=== PATIENT | male | born 1955 | race Caucasian/White ===

== ENCOUNTER 2016-11-09 12:05 | Inpatient (IN) ==
[~2016-11-09 12:05] MED LIST: *HR* Amiodarone Premix 150 MG/100 ML BAG IVPB ONE
[2016-11-09] MEDS ORDERED: *HR* Heparin 10,000 UNIT/10 ML VIAL ONE (12:09)
[2016-11-09] MEDS ORDERED: Verapamil 5 MG/2 ML VIAL ONE (12:09)
[2016-11-09] MEDS ORDERED: 0.9 % Sodium Chloride 1,000 ML ONE (12:10)
[2016-11-09] MEDS ORDERED: Heparin 1,000 UNITS/500 mL NS 500 ML ONE (12:10)
[2016-11-09] MEDS ORDERED: Nitroglycerin 1,000 MCG/10 ML VIAL IV ONE (12:10)
[2016-11-09] MEDS ORDERED: *HR* FentaNYL (PF) 100 MCG/2 ML VIAL ONE (12:43)
[2016-11-09] MEDS ORDERED: *HR* Midazolam HCl 5 MG/5 ML VIAL IVP ONE (12:44)
[2016-11-09] MEDS ORDERED: Tirofiban 5 MG/100ML 0 MG/0 ML BAG IV ONE (13:04)
--- NOTE | 2016-11-09 13:11 | Pre-Sedation Evaluation ---
Pre-sedation evaluation - Pre-sedation checklist Date of procedure: 11/09/16 Procedure: [facility] Recent Vitals: as documented in emr H&P (including ROS) documented in medical record: Yes Previous reaction to sedatives/anesthetics: Unknown Dietary Status: unknown Airway Assessment: Patient can open mouth completely, TMJ function normal ASA Classification *see protocol: CLASS II-Mild systemic disease, E-EMERGENCY- Add to any of the above to indicate emergent Plan of Care: Pt appropriate candidate for procedure/moderate/conscious sedation , Risks/benefits of procedure/sedation discussed w/ patient/family, If not NPO; Risk of intake outweiged by necessity to perform procedure
[2016-11-09] MEDS ORDERED: *HR* Phenylephrine 10 MG/ML VIAL ONE (13:30)
[2016-11-09] MEDS ORDERED: Amiodarone Premix 360 MG/200 ML BAG IVC ONE ×2 (13:38→19:27)
[2016-11-09] MEDS ORDERED: *HR* Adenosine 6 MG/2 ML VIAL IVP ONE (13:47)
[2016-11-09] MEDS ORDERED: *HR* Atropine Sulfate 1 MG/10 ML SYRINGE ONE (13:54)
[2016-11-09] MEDS ORDERED: Ondansetron 4 MG/2 ML VIAL IVP PRN (14:21)
[2016-11-09] MEDS ORDERED: *HR* Metoprolol 5 MG/5 ML VIAL IVP PRN (14:21)
--- NOTE | 2016-11-09 14:29 | Cardiology History & Physical ---
Date of Encounter: 11/09/16 Time of Encounter: 15:00 Assessment and Plan (1) Acute MN, inferior wall Current Visit: No Status: Acute Aspirin, brilinta, heparin given. Emergent LHC for inferior STEMI to potentially save his life. A/R/B discussed with patient. EF assessment will be completed. The assessment and plan as outlined above was discussed with the patient and/or family members who expressed understanding and agreement. All questions were answered. (2) Smoker Current Visit: Yes Status: Acute Smoking cessation counseled. The assessment and plan as outlined above was discussed with the patient and/or family members who expressed understanding and agreement. All questions were answered. (3) Chest pain Current Visit: Yes Status: Acute see above. The assessment and plan as outlined above was discussed with the patient and/or family members who expressed understanding and agreement. All questions were answered. Qualifiers: Ischemic chest pain type: unspecified angina pectoris type Qualified Code(s ): I20.9 - Angina pectoris, unspecified History of Present Illness Chief complaint: chest pressure HPI: Mr. Laboy is a 61 year old male smoker with no previous cardiac history presents with severe chest discomfort radiating down left arm and inferior STEMI. It is associated with dyspnea and has minimal improvement with aspirin, brilinta, and heparin. The symptoms have been present but more mild and intermittent for a few days. Past Med Surg Social Fam HX - Past Medical History Medical history: no medical history Psychiatric history: no psych history - Past Surgical History Surgical History: other - Social History Smoking Status: Current every day smoker Smokeless Tobacco Status: No Alcohol use: none Drug use: none Medications and Allergies Gabapentin [Neurontin] 800 mg PO TID 04/06/15 [History] Acetaminophen w/Cod 300-30 mg [Tylenol w/Codeine #3] 1 tab PO BID PRN 11/09/16 [ History] Allergies No Known Allergies Allergy (Verified 07/09/16 11:15) All Systems Review: A 10-system review of systems was performed and is negative for pertinent findings except as documented above in the HPI. - Constitutional Constitutional: no chills, no fever(s) - EENT Eyes: no blurred vision, no loss of vision Nose, mouth and throat: no bleeding gums, no epistaxis - Cardiovascular Cardiovascular: chest pain at rest, chest pain with exertion, dyspnea on exertion, radiating jaw, neck or arm pain - Respiratory Respiratory: no hemoptysis, no wheezing - Gastrointestinal Gastrointestinal: no coffee ground emesis, no hematochezia - Genitourinary Genitourinary: no dysuria, no hematuria - Musculoskeletal Musculoskeletal: no abnormal gait, no muscle weakness - Integumentary Integumentary: no rash, no unusual bruising - Neurological Neurological: no abnormal speech, no loss of vision - Psychiatric Psychiatric: no anxiety, no depression - Hematological/Lymphatic Hematologic/Lymphatic: no easy bleeding, no easy bruising Physical Examination General: Conversant, Other (significant distress) HEENT: Atraumatic, Normocephaly Neck: No JVD Cardiac: Reg Rate and Rhythm Lungs: Normal Breath Sounds Neuro: Alert and responsive Abdomen: Soft Skin: No rashes noted on visualized skin Musculoskeletal: No Chest Wall Tenderness Extremities: No Edema Results - EKG Interpretation EKG results cardiology: personally reviewed, sinus rhythm (inferior current of injury)
--- NOTE | 2016-11-09 14:31 | Event Note ---
Date of Encounter: 11/09/16 Time of Encounter: 14:30 - Cardiology Event Note Prox-mid RCA occlusion s/p PCI BENITO x3. Complicated by slow flow and spasm which resulted in hypotension, VT, VF requiring defibrillation x 2, dopamine and neosynephrine. EF 55%. Patient stable at this time with ST back to baseline off of vasopressors. Continue amiodarone drip overnight
--- NOTE | 2016-11-09 14:48 | Invasive Diagnostic Lab Proc ---
Name: Lonnie Laboy Date of Study: 11/09/2016 Date: 1955 Ht: 68.0in Medical Record#: [id number] Age: 61 Wt: 150.36lb Gender: Male BSA: 1.81 Order #: [id number] BMI: 22.87 Physicians Procedure Physician: Naresh Yeboah MD, FACC Referring MD: Referring MD: Staff Name Position Time In Sarah Solis RT (R) Scrub 01:07 PM Iris Cabral RN Nailing Machine Operator Automatic 01:08 PM Marcia Guthrie RN Nailing Machine Operator Automatic 01:08 PM Daysi Salazar RN Monitor 01:08 PM Indications Indication STEMI Procedures Performed Procedure L HRT ARTERY/VENTRICLE ANGIO PRQ CARD REVASC [place] 1 VSL CARDIOVERSION, EXTERNAL Pre-Procedure Checklist Informed consent is complete signed and on chart. H\\T\\P is on chart. ID band is on and ID verified with patient. Patient NPO for procedure The procedure was described for the patient and questions were answered. ECG is on chart. Plan of Care Patient will tolerate the procedure without complications. Adequate level of comfort will be maintained. Hemodynamics will remain stable Patient will recover from procedure without complications. Respiratory function will be maintained. Cardiac rhythm will remain stable. Patient temperature will be maintained. Patient and/or family have verbalized understanding of the procedure. Patient Education Chief Complaint/Reason for Test: Cardiac Cath Developmental Category: Adult (18-64 years) Developmentally Appropriate for Age: Yes Learning Barriers: None Education Needs: Procedure Education Method: Verbal Information Taught: Cardiac Cath Educational Evaluation: Able to repeat information Intravenous Access Time IV Size Location DC'd Fluid/Drip Rate Units RN 01:10 PM 18g 1 1/4" Patent On Arrival Lt Antecubital 0.9NaCl 01:11 PM 20g 1 1/4" Patent On Arrival Lt Hand Allergies No Known Allergies Vital Signs Time BP (mmHg) HR (bpm) O2 Sat. RR (bpm) LOC / % 5 = Fully awake and oriented or at pre-proc level 01:11 PM / % 5 = Fully awake and oriented or at pre-proc level 01:12 PM / % 5 = Fully awake and oriented or at pre-proc level 01:27 PM / % 5 = Fully awake and oriented or at pre-proc level 01:12 PM 169 / 98 75 95 % 17 01:17 PM 149 / 84 84 98 % 14 01:22 PM 88 / 45 48 98 % 19 01:25 PM 88 / 48 93 99 % 16 01:29 PM 150 / 126 69 96 % 16 01:30 PM 93 / 47 107 93 % 15 01:32 PM 89 / 37 100 94 % 13 01:35 PM 99 / 50 103 91 % 18 01:40 PM 90 / 42 129 96 % 15 5 = Fully awake and oriented or at pre-proc level 01:45 PM 155 / 79 129 96 % 16 01:50 PM 150 / 84 114 99 % 13 01:55 PM 131 / 66 97 99 % 10 02:00 PM 95 / 57 85 100 % 10 5 = Fully awake and oriented or at pre-proc level 02:05 PM 125 / 60 78 100 % 16 02:10 PM 126 / 74 76 99 % 18 02:15 PM 106 / 62 77 98 % 16 5 = Fully awake and oriented or at pre-proc level Procedural Medications Time Medication Dose Units Method Given By 01:12 PM Versed 2 mg Intravenous Marcia Guthrie RN 01:12 PM Fentanyl 50 mcg Intravenous Marcia Guthrie RN 01:14 PM Lidocaine 2% 0.5 ml Subcutaneous Naresh Yeboah MD, FACC 01:15 PM Heparin 4000 units Nitroglycerin 200 mcg Verapamil 2.5 mg Intraarterial Naresh Yeboah MD, FACC 01:23 PM Atropine 1 mg Intravenous Iris Cabral RN 01:24 PM Dopamine 10 mcg/kg/min Intravenous Marcia Guthrie RN 01:27 PM Heparin 3000 units Intravenous Iris Cabral RN 01:27 PM Dopamine 15 mcg/kg/min Intravenous Iris Cabral RN 01:28 PM Reopro Bolus: 8.9 ml Intravenous Iris Cabral RN 01:29 PM Dopamine 20 mcg/kg/min Intravenous Iris Cabral RN 01:32 PM Amniodarone 100 mg Intravenous Iris Cabral RN 01:34 PM Versed 1 mg Intravenous Caotes 01:34 PM Fentanyl 25 mcg Intravenous Iris Cabral RN 01:39 PM Oxygen 7 L/min oxymask Iris Cabral RN 01:42 PM Nitroglycerin 100 mcg Intracoronary Naresh Yeboah MD 01:42 PM Amiodarone 33 ml/hr Intravenous Marcia Guthrie RN 01:44 PM Neosynephrine 100 mcg Intravenous Iris Cabral RN 01:46 PM Dopamine 10 mcg/kg/min Intravenous Iris Cabral RN 01:47 PM Dopamine 0 mcg/kg/min Intravenous Iris Cabral RN 01:50 PM Adenosine 65 mcg Intracoronary Naresh Yeboah MD 01:51 PM 0.9NaCl 500 mcg Intravenous Marcia Guthrie RN 01:51 PM Adenosine 200 mcg Intracoronary Naresh Yeboah MD 01:52 PM Nitroglycerin 100 mcg Intracoronary Naresh Yeboah MD 01:52 PM Heparin 1000 units Intravenous [place] 01:58 PM Adenosine 200 mcg Intracoronary Naresh Yeboah MD 01:59 PM Nitroglycerin 100 mcg Intracoronary Naresh Yeboah MD 02:01 PM Oxygen 5 L/min oxymask Iris Cabral RN ASA Classification: CLASS III- Severe systemic disease (i.e. prior AMI, diabetes with vascular complications, morbid obesity) [place] Score Preprocedure Postprocedure Activity 2- Moves 4 extremities sustained head lift Activity 2- Moves 4 extremities sustained head lift Circulation 2- SBP +/= 20 points of pre-anesthetic level Circulation 2- SBP +/= 20 points of pre-anesthetic level Consciousness 2- Awake and alert oriented x 3 Consciousness 2- Awake and alert oriented x 3 O2 Saturation 2- Able to maintain O2 satruation of 92% on room air O2 Saturation 2- Able to maintain O2 satruation of 92% on room air Respiratory 2- Able to deep breathe and cough well Respiratory 2- Able to deep breathe and cough well Total Score 10 Total Score 10 Contrast Agent: Isovue Diagnostic Contrast: 101 ml Total Contrast: 101 ml Fluoro Dose: 690 mGy Activated Clotting Time Time Seconds to Clot 01:51 PM 287 Procedure Log Time Note Enter By 01:07 PM CathStat 01:07 PM [ Start or Stop Vital ] 01:07 PM Pt arrived to tutorial laboratory supervisor 2 at 13:07 ejohnson 01:08 PM Sarah Solis RT (R) Position: Scrub Time in: 13:07 ejohnson 01:08 PM Iris Cabral RN Position: Nailing Machine Operator Automatic Time in: 13:08 ejohnson 01:08 PM Marcia Guthrie RN Position: Nailing Machine Operator Automatic Time in: 13:08 ejohnson 01:08 PM Daysi Salazar RN Position: Monitor Time in: 13:08 ejohnson 01:08 PM Patient charges- Angio tray pack, Navilyst 3mm J, Pulse Oximetry and ACIST tubing and transducer ejohnson : PM Hair removed from procedure site in procedure lab using clippers. Right wrist prepped with Chloraprep by Sarah Solis (Emma), safety strap applied then patient was draped. Skin intact. ejohnson : PM Physician arrived 13:08 ejohnson :08 PM ASA Class CLASS III- Severe systemic disease (i.e. prior AMI, diabetes with vascular complications, morbid obesity) ejohnson : PM Meet and greet completed ejohnson : PM Sign in performed according to hospital policy. ejohnson :08 PM Procedure start 13:08 ejohnson :10 PM Vitals capture started with the following parameters, Patient=Adult, Interval=5 min, Initial Zebyxwur=420 mmHg, Deflation Rate=5 mmHg, Cuff placed on Left Arm 01:11 PM Vitals capture started with the following parameters, Patient=Adult, Interval=5 min, Initial Kjklnipa=404 mmHg, Deflation Rate=5 mmHg, Cuff placed on Left Arm 01:11 PM Time: 13:11 Patient comfortable and pain free: No 8/10 chest pain..STEMI ejohns:12 PM Time: 13:11LOC: 5 = Fully awake and oriented or at pre-proc level ejohnson :12 PM HR=75 bpm, JDXX=688/98 mmhg, SpO2=95.0 %, Resp=17 B/min, Comment=SR 01:12 PM Time: 13:12 Versed 2 mg Intravenous Given by Marcia Guthrie RN ejcanson :12 PM Time: 13:12 Fentanyl 50 mcg Intravenous Given by Marcia Guthrie RN ejcanson :13 PM Recorded ECG: HR=76 Condition=Condition 1 01:14 PM Time out performed according to hospital policy ejoh:14 PM Time: 13:14 0.5 ml Lidocaine 2% to right radial Subcutaneous Given by Naresh Yeboah MD, [facility] ejohnson :14 PM Access obtained by percutaneous puncture. 6Fr 10cm Terumo Glidesheath sheath placed in right Radial artery. [id number] ejohnson 01:15 PM Time: 13:15 Patient given 4,000 units Heparin, 200 mcg Nitroglycerin, and 2.5 mg Verapamil Intraarterial by Naresh Yeboah MD, [facility] ejohnson 01:16 PM 6Fr Im Runway guide catheter was used to cannulate the PCI vessel successfully. reused? No ejohnson 01:16 PM Inflation device was opened. ejohnson 01:17 PM HR=84 bpm, LAGD=074/84 mmhg, SpO2=98.0 %, Resp=4 B/min, Comment=SR 01:17 PM Recorded Pressure: Ao, HR=87, Condition=Condition 1 (Aorta) Ao 130/96/112 01:17 PM RCA angiography performed in multiple views. ejohnson 01:18 PM Lesion found in Proximal RCA. Pre Stenosis: 100 Pre JOSE Flow: 3: Complete and Brisk Flow/Perfusion ejohnson 01:18 PM Right Coronary, Right Posterior Descending Arteries with Right Posterolateral and Acute Marginal branches with 100 % stenosis. ejohnson 01:18 PM .014 PT Graphix 180cm guide wire across target lesion- successful. reused? No ejohnson 01:19 PM 2.5 mm x 15 mm Emerge Monorail balloon across target lesion- successful. reused? No ejohnson 01:20 PM Balloon inflated @ 14 meng for 10 seconds ejohnson 01:20 PM Recorded Pressure: Ao, HR=43, Condition=Condition 1 (Aorta) Ao 130/-25/35 01:20 PM Time: 13:23 Atropine 1 mg Intravenous Given by Iris Cabral RN ejohnson 01:21 PM Balloon inflated @ 14 meng for 6 seconds ejohnson 01:21 PM Balloon catheter removed intact. ejohnson 01:21 PM NIBP STAT measurement started. 01:22 PM HR=48 bpm, NIBP=88/45 mmhg, SpO2=98 %, Resp=9 B/min 01:23 PM Guide catheter removed intact. ejohnson 01:23 PM NIBP STAT measurement started. 01:23 PM 3.0mm x 20mm Synergy drug-eluting stent across target lesion- successful Lot #[id number] ejohnson 01:24 PM Stent deployed @ 14 meng for 10 seconds ejohnson 01:24 PM Recorded Pressure: Ao, HR=63, Condition=Condition 1 (Aorta) Ao 24/-3 01:24 PM Time: 13:24 Dopamine 10 mcg/kg/min Intravenous Given by Marcia Guthrie RN Cordero pump ejohnson :25 PM Pressure channel 1 zero failed. 01:25 PM Pressure channel 1 zeroed. 01:25 PM HR=93 bpm, NIBP=88/48 mmhg, SpO2=99.0 %, Resp=16 B/min, Comment=SR 01:25 PM Stent delivery system removed intact. ejohnson : PM NIBP STAT measurement started. : PM Time: 13:12LOC: 5 = Fully awake and oriented or at pre-proc level ejohnson : PM Time: 13:11 Patient comfortable and pain free: Yes ejohnson : PM Time: 13:27 Heparin 3000 units Intravenous Given by Iris Cabral RN ejohnson : PM Time: 13:27 Dopamine 15 mcg/kg/min Intravenous Given by Iris Cabral RN Cordero pump ejohnson : PM Vitals capture stopped. 01:28 PM NIBP STAT measurement started. 01: PM Guide catheter removed intact. ejohnson : PM Guide catheter removed intact. ejohnson : PM Time: 13:28 Reopro Bolus: 8.9 ml Intravenous Given by Iris Cabral RN Cordero pump ejohnson : PM 6Fr JR 4 Runway guide catheter was used to cannulate the PCI vessel successfully. reused? No ejohnson : PM Time: 13:29 Dopamine 20 mcg/kg/min Intravenous Given by Iris Cabral RN Cordero pump ejohnson : PM HR=69 bpm, GZQB=608/126 mmhg, SpO2=96 %, Resp=6 B/min 01:29 PM Vitals capture started with the following parameters, Patient=Adult, Interval=5 min, Initial Szrkztro=375 mmHg, Deflation Rate=5 mmHg, Cuff placed on Left Arm 01:30 PM Guide catheter removed intact. ejohnson :30 PM TY=076 bpm, NIBP=93/47 mmhg, SpO2=93 %, Resp=5 B/min 01:32 PM NIBP STAT measurement started. 01:32 PM 6Fr JR 4 SH Runway guide catheter was used to cannulate the PCI vessel successfully. reused? No ejohnson 01:32 PM VM=842 bpm, NIBP=89/37 mmhg, SpO2=94 %, Resp=3 B/min 01:33 PM Time: 13:32 Amniodarone 100 mg Intravenous Given by Iris Cabral RN ejohnson 01:33 PM 200joules defib ejohnson 01:33 PM Recorded Pressure: Ao, OG=192, Condition=Condition 1 (Aorta) Ao 85/62/73 01:34 PM .014 PT Graphix 180cm guide wire across target lesion- successful. reused? Yes ejohnson 01:34 PM Time: 13:34 Versed 1 mg Intravenous Given by Veronica ejohnson 01:34 PM Time: 13:34 Fentanyl 25 mcg Intravenous Given by Iris Cabral RN ejohnson 01:35 PM VH=326 bpm, NIBP=99/50 mmhg, SpO2=91 %, Resp=8 B/min 01:36 PM 200 joules defib ejohnson 01:36 PM 2.0 mm x 20 mm Emerge Monorail balloon across target lesion- successful. reused? No ejohnson 01:37 PM Balloon inflated @ 14 meng for 10 seconds ejohnson 01:37 PM Balloon inflated @ 12 meng for 10 seconds ejohnson 01:39 PM Time: 13:39 Oxygen on at 7 L/min per oxymask by Iris Cabral RN ejohnson 01:39 PM Balloon catheter removed intact. ejohnson 01:39 PM 3.0mm x 28mm Synergy drug-eluting stent across target lesion- successful Lot #[id number] ejohnson 01:40 PM Stent deployed @ 12 meng for 9 seconds ejohnson 01:40 PM TR=263 bpm, NIBP=90/42 mmhg, SpO2=96.0 %, Resp=6 B/min, Comment=SR 01:40 PM Stent balloon reinflated @ 14 meng for 12 seconds ejohnson 01:41 PM Stent delivery system removed intact. ejohnson 01:42 PM Time: 13:27 Patient comfortable and pain free: Yes ejohnson :42 PM Time: 13:27LOC: 5 = Fully awake and oriented or at pre-proc level ejohnson :42 PM Time: 13:42 Nitroglycerin 100 mcg Intracoronary Given by Naresh Yeboah MDohnscristnia 01:43 PM Time: 13:42 Amiodarone 33 ml/hr Intravenous Given by Marcia Guthrie RN Cordero pump ejohnscristina 01:44 PM 3.0mm x 24mm Synergy drug-eluting stent across target lesion- successful Lot #[id number] ejohnson 01:44 PM Time: 13:44 Neosynephrine 100 mcg Intravenous Given by Iris Cabral RNohnscristina 01:45 PM Stent deployed @ 12 meng for 8 seconds ejohnson 01:45 PM OX=436 bpm, OEWO=766/79 mmhg, SpO2=96.0 %, Comment=SR 01:46 PM Time: 13:46 Dopamine 10 mcg/kg/min Intravenous Given by Iris Cabral RN Cordero pump ejohnson 01:47 PM Stent delivery system removed intact. ejohnson 01:47 PM Time: 13:47 Dopamine 0 mcg/kg/min Intravenous Given by Iris Cabral RN Cordero pump ejohnson 01:47 PM Recorded Pressure: Ao, YV=175, Condition=Condition 1 (Aorta) Ao 139/80/103 01:49 PM 250joules defib ejohnson 01:49 PM Recorded Pressure: Ao, CB=008, Condition=Condition 1 (Aorta) Ao 65/59/62 01:50 PM WZ=285 bpm, UWCI=266/84 mmhg, SpO2=99.0 %, Resp=13 B/min, Comment=SR 01:50 PM Time: 13:50 Adenosine 65 mcg Intracoronary Given by Naresh Yeboah MDohtravis 01:51 PM Time: 13:51 Adenosine 200 mcg Intracoronary Given by Naresh Yeboah MD 01:51 PM Time: 13:51 0.9NaCl 500 mcg Intravenous Given by Marcia Guthrie RN Cordero pump ejohnscristina 01:51 PM At 13:51 the ACT was 287 seconds. ejohnson 01:52 PM Time: 13:52 Nitroglycerin 100 mcg Intracoronary Given by Naresh Yeboah MD 01:52 PM Time: 13:52 Heparin 1000 units Intravenous Given by Igor ejdagmar 01:54 PM 1.5 mm x 15 mm Emerge Monorail balloon across target lesion- successful. reused? No ejohnson 01:55 PM HR=97 bpm, LEHL=654/66 mmhg, SpO2=99.0 %, Resp=10 B/min, Comment=SR 01:56 PM Balloon catheter removed intact. ejohnson 01:58 PM Recorded ECG: HR=88 Condition=Condition 1 01:58 PM Time: 13:58 Adenosine 200 mcg Intracoronary Given by Naresh Yeboah MD ejohnson 01:59 PM Time: 13:59 Nitroglycerin 100 mcg Intracoronary Given by Naresh Yeboah MD ejohnson 01:59 PM NIBP STAT measurement started. 02:00 PM HR=85 bpm, NIBP=95/57 mmhg, VvQ5=802.0 %, Resp=10 B/min, Comment=SR 02:00 PM Guide wire removed intact. ejohnson 02:00 PM Guide catheter removed intact. ejohnson 02:00 PM 5Fr FL 4 catheter inserted over the wire DN ejohnson 02:01 PM Time: 14:01 Oxygen on at 5 L/min per oxymask by Iris Cabral RN ejohnson 02:02 PM Recorded Pressure: Ao, HR=93, Condition=Condition 1 (Aorta) Ao 78/63/71 02:02 PM LCA angiography performed in multiple views. ejohnson 02:02 PM Coronary Dominance: right ejohnson 02:04 PM Catheter removed ejohnson 02:04 PM 5Fr Pigtail catheter inserted over the wire DN ejohnson 02:05 PM Catheter selectively placed in left ventricle ejohnson 02:05 PM HR=78 bpm, XBPP=303/60 mmhg, ZxW0=200.0 %, Resp=16 B/min, Comment=SR 02:06 PM Pressure channel 1 zeroed. 02:06 PM Recorded Pressure: LV, HR=83, Condition=Condition 1 (Left Ventricle) LV 106/14/22 02:06 PM Bolus angiogram of left Ventricle complete: 10 ml/sec for a total of 30 mls ejohnson 02:07 PM Recorded Pressure: LV, Ao, HR=81, Condition=Condition 1 (Left Ventricle) LV 105/22/28, (Aorta) Ao 103/79/90 02:09 PM Sign out completed: Radiation Dose 689.5 mGy Fluoro Time: 10.6 Isovue 370 - 200ml contrast 101 ml given by Naresh Yeboah MD, FACC. Complications: NoneCardiac Rehab Consult needed: YesConfirmed administered medications: Yes ejohnson 02:09 PM Site status No bleeding/hematoma - Rt Groin as reported by Sarah Solis RT (R) at 14:09 ejohnson 02:09 PM 10 ml air in Vasc Band. ejohnson 02:09 PM Arterial sheath pulled, Vasc Band closure device used and was Successful S/N. ejohnson 02:09 PM Catheter removed ejohnson 02:09 PM Procedure completed at 14:09 ejohnson 02:10 PM HR=76 bpm, TQWM=496/74 mmhg, SpO2=99.0 %, Resp=8 B/min, Comment=SR 02:15 PM HR=77 bpm, OXUV=888/62 mmhg, SpO2=98.0 %, Comment=SR 02:19 PM Isovue 370 - 200ml,1 Bottle(s) used. ejohnson 02:20 PM Post ECG NSR ejohnson 02:21 PM Post Blood Pressure 106/62 ejohnson 02:21 PM 14:21 Post Pulses Rt Radial 1+ ejohnson 02:21 PM Information taught Cardiac Cath, PCI, and Vasc Band ejohnson 02:21 PM Education needs Plan of Care and Responsibilities of Patient in Care ejohnson 02:21 PM Learning barriers :None ejohnson 02:21 PM Education Methods Verbal ejohnson 02:21 PM Education evaluation Able to repeat information ejohnson 02:22 PM Plavix, Effient or Brilinta given Yes prior to arrival to quality assurance/r&d lab technician ejohnson 02:22 PM Family placed in none available at this time. ejohnson 02:22 PM Complications: None ejohnson 02:22 PM Fluoro Time: 10.6 ejohnson 02:22 PM Isovue 370 - 200ml contrast 101 ml given by Naresh Yeboah MD, FACC. ejohnson 02:28 PM Report given to Mariana DREW Pt taken to ICU Room #9. 14:27 ejohnson 02:28 PM Patient out of room: 14:28 ejohnson 02:28 PM Delay to floor No ejohnson 02:28 PM Lesion found in Proximal LAD. Pre Stenosis: 70 Pre JOSE Flow: 3: Complete and Brisk Flow/Perfusion ejohnson 02:28 PM Lesion found in Mid Circumflex. Pre Stenosis: 60 Pre JOSE Flow: 3: Complete and Brisk Flow/Perfusion ejohnson 02:28 PM Lesion found in 1st Marginal. Pre Stenosis: 90 Pre JOSE Flow: 3: Complete and Brisk Flow/Perfusion ejohnson 02:28 PM Proximal Left Anterior Descending Coronary Artery with 70% stenosis. ejohnson 02:29 PM Circumflex, Obtuse Marginal, Left Posterior Descending, and Left Posterolateral Coronary Arteries with 90 % stenosis. ejohnson Complications Complication None Hemodynamics Pressures Site Systolic/A Wave Diastolic/V Wave Mean AO 130 96 112 AO 130 -25 35 AO 24 -3 12 AO 85 62 73 AO 139 80 103 AO 65 59 62 AO 78 63 71 LV 106 14 22 LV 105 22 28 AO 103 79 90 Post Procedure Information Blood Pressure: 106/62 mmHg Rhythm: NSR Post procedural instructions were given Closure Device Time Device Success/Fail 11/09/2016 2:09:00 PM Mechanical Compression Successful Site Checks Time Location Status Staff Sheath In? Note 02:09 PM Rt Groin No bleeding/hematoma Sarah Solis RT (R) Pulses Time Site Pre-Procedure Post-Procedure Note 2:21:00 PM Rt Radial 1+ Updated by Daysi Salazar RN on 11/09/2016 2:42:47 PM Daysi Salazar RN electronically signed on 11/09/2016 2:43:16 PM with status of Final
[2016-11-09] MEDS: *HR* Ticagrelor 90 MG TABLET PO SCH (19:46)
[2016-11-10] MEDS ORDERED: Amiodarone Premix 360 MG/200 ML BAG IVC ONE (01:28)
[2016-11-10] MEDS: Amiodarone Premix 360 MG/200 ML BAG IVC SCH ×3 (01:41→13:09)
[2016-11-10 04:08] LABS: Basophils # 0.1 K/mcL (0.0-0.2); Basophils % 0.5 %; Eosinophils # 0.2 K/mcL (0.0-0.6); Eosinophils % 1.5 %; Hematocrit 42.1 % (37.5-50.1); Hemoglobin 13.8 g/dL (12.9-16.9); Immature Granulocytes % 0.5 % (0-4); Lymphocytes # 1.6 K/mcL (0.6-4.6); Lymphocytes % 11.1 %; Mean Corpuscular HGB Conc 32.8 g/dL (31.6-35.5); Mean Corpuscular Hemoglobin 30.8 pg (28.0-33.3); Mean Platelet Volume 10.1 fL (9.4-12.4); Monocytes # 1.2 K/mcL (0.0-1.3); Monocytes % 7.9 %; Neutrophils # 11.6 K/mcL (1.6-8.9); Platelet Count 272 K/mcL (140-400); Red Blood Count 4.48 M/mcL (4.19-5.50); Red Cell Distribution Width 14.4 % (11.5-14.5); Segmented Neutrophils % 78.5 %
[2016-11-10 04:14] LABS: BUN/Creatinine Ratio 12 (6-26); Blood Urea Nitrogen 12 mg/dL (8-26); Calcium 8.7 mg/dL (8.6-10.8); Carbon Dioxide 22 mEq/L (19-29); Chloride 108 mEq/L (98-109); Chol/HDL Ratio 5.2 (0-4.9); Cholesterol 165 mg/dL (< 200); Glucose 151 mg/dL (70-99); HDL Cholesterol 32 mg/dL (40-59); LDL Cholesterol,Calculated 96 mg/dL (0-99); Osmolality,Calculated 289 (280-300); Potassium 4.1 mEq/L (3.5-4.5); Sodium 138 mEq/L (136-145); Triglycerides 186 mg/dL (< 150); eGFR For African Americans > 60 (> 60); eGFR For Non-African Americans > 60 (> 60)
[2016-11-10] MEDS: *HR* Morphine 2 MG/ML SYRINGE IVP PRN ×3 (05:01→09:45)
[2016-11-10] MEDS ORDERED: Nitroglycerin 25 MG/250 ML INFUS..BTL IVC ONE (05:29)
[2016-11-10] MEDS ORDERED: Nitroglycerin 25 MG/250 ML INFUS..BTL IVC SCH ×2 (05:41→09:00)
[2016-11-10] MEDS ORDERED: Ipratropium/Albuterol Neb 3 ML IH PRN (05:44)
[2016-11-10] MEDS ORDERED: Verapamil 5 MG/2 ML VIAL ONE (07:12)
[2016-11-10] MEDS ORDERED: 0.9 % Sodium Chloride 1,000 ML ONE (07:13)
[2016-11-10] MEDS ORDERED: *HR* Heparin 10,000 UNIT/10 ML VIAL ONE (07:13)
[2016-11-10] MEDS ORDERED: Nitroglycerin 1,000 MCG/10 ML VIAL IV ONE (07:13)
[2016-11-10] MEDS ORDERED: Heparin 1,000 UNITS/500 mL NS 500 ML ONE (07:13)
--- NOTE | 2016-11-10 08:47 | Cardiology Progress Note ---
Date of Encounter: 11/10/16 Time of Encounter: 08:45 Assessment and Plan (1) Acute SD, inferior wall Current Visit: No Status: Acute Acute inferior SD complicated by hypotension and slow flow spasms resulting in vfib/VT s/p defibrillation x2. He received BENITO x3 to his occluded RCA. There is a 70% pLAD stenosis, 60% mCx stenosis, and 90% stenosis in the 1st OM. On DAPT with asa and brilinta. Pt with recurrent atypical chest pain this morning now resolved. Start imdur and wean off NTG gtt. Discussed LHC with Interventionalist, Dr. Yeboah, he will review films. Repeat EKG shows no acute change in ST segments. He is currently undergoing echocardiogram. Start metoprolol, imdur, and continue statin, asa, and brilinta. (2) Cardiac arrest Current Visit: Yes Status: Acute S/p VT/Vfib during LHC s/p defibrillation x2. Off neosynephrine and dopamine gtt. Continue IV amiodarone load. Few runs of NSVT seen overnight. Start bb. (3) Smoker Current Visit: Yes Status: Acute Expresses anxiety over not smoking. Smoking cessation discussed. Agrees to NRT. Discussion w patient/family: The assessment and plan as outlined above was discussed with the patient and/or family members who expressed understanding and agreement. All questions were answered. Thank you for involving us in the care of your patient. Please call with any questions. Subjective Principal diagnosis: STEMI, Cardiac arrest Interval history: Pt c/o chest pain this morning from mid-epigastric area to his throat that occurred with deep breaths. Chest pain is now relieved. Objective Vital Signs, Last 4 Hours Temp Pulse Resp BP Pulse Ox 11/10/16 08:07 98.0 F 11/10/16 07:19 72 11/10/16 07:00 72 16 108/75 98 11/10/16 06:00 67 16 118/87 98 11/10/16 05:57 19 118/87 99 11/10/16 05:07 97.6 F 11/10/16 05:00 62 20 122/83 99 General: Conversant, No Apparent Distress HEENT: Atraumatic, Normocephaly, Mucus Membranes Moist Neck: No JVD, Normal carotid pulses Cardiac: Reg Rate and Rhythm, Normal S1 and S2, No Murmur Lungs: Normal Breath Sounds, No Wheeze, Rales, Rhonchi Neuro: Alert and responsive, No focal deficits noted Abdomen: Soft, Non-Tender Skin: No rashes noted on visualized skin Musculoskeletal: No Chest Wall Tenderness Extremities: No Clubbing, No Cyanosis, No Edema, Normal Pulses, Other (right radial access with tegaderm. Small amount of blood under dressing. No hematoma. Pulses 2/2+) Results 11/10/16 03:36 11/10/16 03:36 Lab Results 11/10/16 11/10/16 11/10/16 03:36 03:36 05:55 WBC 14.8 H Hgb 13.8 D Hct 42.1 Plt Count 272 Sodium 138 Potassium 4.1 Chloride 108 Carbon Dioxide 22 BUN 12 Creatinine 0.99 Glucose 151 H Calcium 8.7 Troponin I > 50.00 H* - Imaging and Cardiology Echo: pending Cardiac cath: report reviewed - EKG Interpretation EKG results cardiology: personally reviewed (Repeat EKG this am. SR with inferior Q waves. No ST changes.) Consult Discharge Plan - Plan Referrals: NO,PCP [Primary Care Provider] -
[2016-11-10] MEDS: Nicotine 21 MG PATCH.TD24 TD SCH (09:43)
[2016-11-10] MEDS: Isosorbide MONOnitrate (24 HR) 30 MG TAB.ER.24H PO SCH (09:43)
[2016-11-10] MEDS: *HR* Ticagrelor 90 MG TABLET PO SCH ×2 (09:44→21:20)
[2016-11-10] MEDS: Aspirin 81 MG TAB.CHEW PO SCH (09:44)
--- NOTE | 2016-11-10 09:48 | Invasive Diagnostic Lab ---
Name: Lonnie Laboy Date of Study: 11/09/2016 Date: 1955 Ht: 172.7 cm /68.0 in Medical Record#: [id number] Age: 61 Wt: 68.2 kg / 150.36 lb Account/Order#: [id number] Gender: Male BSA: 1.81 Order #: [id number] Fluoro Dose: 690 mGy BMI: 22.87 Procedure Physician: Naresh Yeboah MD, [facility] Referring MD: Referring MD: Procedures Performed: LEFT HEART CATH PCI of Acute MA CARDIOVERSION, EXTERNAL Indications: STEMI Impressions: There is severe three vessel coronary artery disease. The left ventricle contractility EF 50% Patient had successful PTCA/Drug-Eluting Stent placement in the proximal RCA. Recommendations: Optimal medical therapy of patient's disease. Aggressive risk factor modification. Ambulate patient tomorrow to assess if any exertional anginal symptoms from residual disease. History/Risk Factors: CP Dyspnea Diuaphoresis Current/Recent Smoker Procedure Access obtained in the right Radial artery by percutaneous puncture Patient had successful PTCA/Drug-Eluting Stent placement in the proximal RCA. Complications: None Contrast: Isovue 101ml Hemodynamics: Pressures Site Systolic/ A Wave Diastolic/ V Wave End Diastolic/ Mean HR AO 130 96 112 87 AO 130 -25 35 43 AO 24 -3 12 63 AO 85 62 73 116 AO 139 80 103 126 AO 65 59 62 142 AO 78 63 71 93 LV 106 14 22 83 LV 105 22 28 79 AO 103 79 90 86 LV Ventriculography Ejection Method: LV Gram Ejection Fraction: 50% Wall Motion: BROWNING Anterobasal Hyperkinesis Anterolateral Hyperkinesis Apical: Hyperkinesis Inferoapical Hyperkinesis Inferobasal Severe Hypokinesis Coronary Dominance: right Lesion Findings/Interventions * Left Main Coronary Artery The LMCA is angiographically free of disease. * Left Anterior Descending There is a 60-70% stenosis in the Proximal LAD. The lesion has a JOSE flow of 3. * Circumflex There is a 60-70% stenosis in the Mid Circumflex. The lesion has a JOSE flow of 3. There is a 70-80% stenosis in the 1st Marginal at bifurcation. The lesion has a JOSE flow of 3. * Right Coronary Artery There is a 72 mm long, 100% stenosis in the Proximal RCA. The lesion has a JOSE flow of 3 and has no thrombus present. An intervention was performed on the Proximal RCA with a final stenosis of 0%. There were no lesion complications. The final JOSE flow was 3. Initial intervention complicated by thrombus migration and diffuse spasm resulting in bradycardia / hypotensive shock requiring atropine/dopamine/reopro. Patient had VT/VF requiring defibrillation x 2. Amiodarone started then neosynephrine for BP support. 2 additional stents placed to address thrombus and spasm (that did not respond to low dose coronary NTG). After intervention completed, adenosine given for slow flow. ST segments returned to baseline. Interventional Device(s) Vessel Segment Type Name Diameter (mm) Length (mm) Proximal RCA Balloon Emerge Monorail 2.5 15 Proximal RCA Drug Eluting Stent Synergy 3 20 Proximal RCA Balloon Emerge Monorail 2 20 Proximal RCA Drug Eluting Stent Synergy 3 28 Proximal RCA Drug Eluting Stent Synergy 3 24 Proximal RCA Balloon Emerge Monorail 1.5 15 Updated by Daysi Salazar RN on 11/09/2016 2:36:37 PM Naresh Yeboah MD, FACC electronically signed on 11/10/2016 9:41:48 AM with status of Final
--- NOTE | 2016-11-10 10:31 | ECHO - Doppler Report ---
Echocardiogram Name: Lonnie Laboy Date of Study: 11/10/2016 Date: 1955 Ht: 68.0 in Medical Record#: [id number] Age: 61 Wt: 161.0 lb Gender: Male BSA: 1.86 Order #: [id number] Location: [facility] Room #: [facility] Reading Physician: Sherri Samuel DO Electrical Experimental Mechanic: William Belcher, [facility] Ordering Physician: Naresh Yeboah MD, [facility] Primary Physician: None Indications: Acute coronary sydrome Impressions: LVEF 55%. Normal left ventricular size and systolic function. Not all LV segments were well visualized. There is evidence of mild diastolic dysfunction of the left ventricle. Normal right ventricular size and function. No significant valvular dysfunction. No pulmonary hypertension. Left Ventricular Wall Motion: Rest Echo Findings All wall segments showed normal motion. Findings: Study Quality * Technically adequate exam. ECG Findings * Normal sinus rhythm. Aortic Valve * No aortic regurgitation. * Trileaflet aortic valve. * Normal aortic valve structure. * No aortic stenosis. Mitral Valve * Normal mitral valve structure. * No mitral stenosis. * Trace mitral regurgitation. Tricuspid Valve * No tricuspid regurgitation. * Normal tricuspid valve structure. * Estimated RA pressure is 3 mmHg. * Estimated RVSP is 14 mmHg. * No pulmonary hypertension. Pulmonic Valve * Pulmonic valve is not well visualized. * No pulmonic stenosis. * No pulmonic regurgitation. Pulmonary Artery * Pulmonary artery not well visualized. Left Ventricle * Mild left ventricular diastolic dysfunction. * LVEF 55%. * Normal size and wall thickness. Right Ventricle * Normal right ventricular structure and function. Pericardium * There is no pericardial effusion present. Aorta * Normally sized aortic root. Interatrial Septum * No evidence of PFO by color Doppler. IVC * Normal IVC dimensions and inspiratory collapse. Left Atrium * Normal left atrial size. Right Atrium * Normal right atrial size. History History of Smoking Years 44 Packs 3 Measurements: BP: 108/ 75 2D Normal Values RVIDd: 2.80 cm <2.7 cm IVSd: 1.20 cm 0.6 - 1.0 cm LVIDd: 4.64 cm 3.7 - 5.6 cm LVPWd: 1.20 cm 0.6 - 1.1 cm LVIDs: 3.54 cm 1.5 - 3.6 cm AO: 2.80 cm < 4.0 cm LA: 2.80 cm 2.0 - 4.0cm %FS: 23.70 cm >25 % LA volume: 25 Mitral Valve Peak E:.58 m/sec Peak A:.63 m/sec E/A Ratio:0.9 Peak E' Lat Arnav:11.4 cm/s Peak E' Med Arnav:7.72 cm/s E/E' Lat Ratio:5.1 E/E' Med Ratio:7.5 Tricuspid Valve TV Regurg Peak Grad: 11.00mmHg TV Regurg Peak Arnav: 1.64m/sec Updated by Sherri Samuel on 11/10/2016 10:26:20 AM electronically signed on 11/10/2016 10:27:36 AM with status of Final Wall Motion [place]: 1=Normal, 2=Hypokinesis, 3=Akinesis, 4=Dyskinesis, 5=Aneurysmal, 6=Hyperkinetic, X=Not Visualized (Blank)=Missing
[2016-11-10] MEDS ORDERED: Amiodarone Premix 360 MG/200 ML BAG IVC SCH (14:00)
--- NOTE | 2016-11-10 19:30 | Electrocardiograph Report ---
[address] [place] [address] Test Date: 2016-11-09 Pat Name: Lonnie Laboy Department: 109 Room: [facility] Gender: M Head Doffer: [facility] : 1955 Requested By: Naresh Yeboah Order Number: [id number] Reading MD: Naresh Yeboah MD Measurements Intervals [place] Rate: 70 P: 49 NE: 160 QRS: -13 QRSD: 105 T: 21 QT: 387 QTc: 408 Interpretive Statements SINUS RHYTHM POSSIBLE INFERIOR MYOCARDIAL INFARCTION, OF INDETERMINATE AGE Electronically Signed On 11-10-2016 19:29:04 EDT by Naresh Yeboah MD
--- NOTE | 2016-11-10 19:55 | Electrocardiograph Report ---
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
[2016-11-11] MEDS: *HR* Ticagrelor 90 MG TABLET PO SCH ×2 (08:44→20:00)
[2016-11-11] MEDS: Nicotine 21 MG PATCH.TD24 TD SCH (08:44)
[2016-11-11] MEDS: Aspirin 81 MG TAB.CHEW PO SCH (08:44)
[2016-11-11] MEDS: Isosorbide MONOnitrate (24 HR) 30 MG TAB.ER.24H PO SCH (08:45)
[2016-11-11 10:37] LABS: Basophils % 0.2 %; Eosinophils % 0.2 %; Hematocrit 39.7 % (37.5-50.1); Hemoglobin 13.1 g/dL (12.9-16.9); Immature Granulocytes % 0.5 % (0-4); Lymphocytes # 0.9 K/mcL (0.6-4.6); Lymphocytes % 7.4 %; Mean Corpuscular Hemoglobin 30.4 pg (28.0-33.3); Mean Corpuscular Volume 92.1 fL (83.0-100.0); Mean Platelet Volume 10.1 fL (9.4-12.4); Monocytes # 1.3 K/mcL (0.0-1.3); Monocytes % 10.1 %; Neutrophils # 10.4 K/mcL (1.6-8.9); Platelet Count 233 K/mcL (140-400); Red Blood Count 4.31 M/mcL (4.19-5.50); Segmented Neutrophils % 81.6 %
[2016-11-11 11:12] LABS: BUN/Creatinine Ratio 11 (6-26); Blood Urea Nitrogen 10 mg/dL (8-26); Calcium 9.1 mg/dL (8.6-10.8); Carbon Dioxide 23 mEq/L (19-29); Chloride 109 mEq/L (98-109); Glucose 101 mg/dL (70-99); Osmolality,Calculated 287 (280-300); Sodium 139 mEq/L (136-145); eGFR For African Americans > 60 (> 60); eGFR For Non-African Americans > 60 (> 60)
--- NOTE | 2016-11-11 14:59 | Cardiology Progress Note ---
Date of Encounter: 11/11/16 Time of Encounter: 14:00 Assessment and Plan (1) Acute IA, inferior wall Current Visit: No Status: Acute Acute inferior IA complicated by hypotension and slow flow spasms resulting in vfib/VT s/p defibrillation x2. He received BENITO x3 to his occluded RCA. There is a 70% pLAD stenosis, 60% mCx stenosis, and 90% stenosis in the 1st OM. On DAPT with asa and brilinta. Off NTG gtt and no recurrent chest pain. LHC was reviewed with Dr. Yeboah. If he had recurrent chest pain during stay consider PCI of the LAD and OM. No recurrent pain. Can recover from IA and have repeat LHC after out-pt f/u. Repeat EKG shows no acute change in ST segments. TTE shows EF 55%, no significant valvular disease. Start metoprolol, imdur, and continue statin, asa, and brilinta. (2) Cardiac arrest Current Visit: Yes Status: Acute S/p VT/Vfib during LHC s/p defibrillation x2. Off neosynephrine and dopamine gtt. Change amiodarone to P.O. No recurrent VT/vfib seen. (3) Smoker Current Visit: Yes Status: Acute Expresses anxiety over not smoking. Smoking cessation discussed. NRT is helping. Discussion w patient/family: The assessment and plan as outlined above was discussed with the patient and/or family members who expressed understanding and agreement. All questions were answered. Thank you for involving us in the care of your patient. Please call with any questions. Subjective Principal diagnosis: STEMI, Cardiac arrest Interval history: Denies recurrent chest pain. Objective Vital Signs, Last 4 Hours Temp Pulse Resp BP Pulse Ox 11/11/16 14:00 67 14 91/77 98 11/11/16 13:00 65 14 91/63 98 11/11/16 12:16 98.0 F 11/11/16 12:00 65 11/11/16 11:55 65 14 94/73 98 11/11/16 11:00 65 14 90/61 93 General: Conversant, No Apparent Distress HEENT: Atraumatic, Normocephaly, Mucus Membranes Moist Neck: No JVD, Normal carotid pulses Cardiac: Reg Rate and Rhythm, Normal S1 and S2, No Murmur Lungs: Normal Breath Sounds, No Wheeze, Rales, Rhonchi Neuro: Alert and responsive, No focal deficits noted Abdomen: Soft, Non-Tender Skin: No rashes noted on visualized skin Musculoskeletal: No Chest Wall Tenderness, Other (right radial access without complication.) Extremities: No Clubbing, No Cyanosis, No Edema, Normal Pulses Results 11/11/16 10:23 11/11/16 10:23 Lab Results 11/11/16 11/11/16 10:23 10:23 WBC 12.7 H Hgb 13.1 Hct 39.7 Plt Count 233 Sodium 139 Potassium 4.0 Chloride 109 Carbon Dioxide 23 BUN 10 Creatinine 0.93 Glucose 101 H Calcium 9.1 - Imaging and Cardiology Echo: report reviewed Consult Discharge Plan - Plan Referrals: NO,PCP [Non-Partnered Physician] -
[2016-11-11] MEDS ORDERED: *HR* Morphine 2 MG/ML SYRINGE IVP PRN (15:32)
[2016-11-11] MEDS ORDERED: Ipratropium/Albuterol Neb 3 ML IH PRN (15:32)
[2016-11-11] MEDS ORDERED: Nitroglycerin 25 MG/250 ML INFUS..BTL IVC SCH (15:32)
[2016-11-11] MEDS ORDERED: *HR* Metoprolol 5 MG/5 ML VIAL IVP PRN (15:32)
[2016-11-11] MEDS ORDERED: Ondansetron 4 MG/2 ML VIAL IVP PRN (15:32)
[2016-11-11] MEDS: *HR* Amiodarone 200 MG TABLET PO SCH (20:00)
[2016-11-11] MEDS ORDERED: *HR* Amiodarone 200 MG TABLET PO SCH (21:00)
[2016-11-12] MEDS: *HR* Amiodarone 200 MG TABLET PO SCH (07:46)
[2016-11-12] MEDS: *HR* Ticagrelor 90 MG TABLET PO SCH (07:46)
[2016-11-12 07:53] VITALS: BP 111/74
[2016-11-12] MEDS ORDERED: Aspirin 81 MG TAB.CHEW PO SCH (09:00)
[2016-11-12] MEDS ORDERED: Nicotine 21 MG PATCH.TD24 TD SCH (09:00)
[2016-11-12] MEDS ORDERED: Isosorbide MONOnitrate (24 HR) 30 MG TAB.ER.24H PO SCH (09:00)
--- NOTE | 2016-11-12 10:18 | Discharge Summary ---
Date of Encounter: 11/12/16 Time of Encounter: 10:09 - Discharge Diagnosis (1) Acute MN, inferior wall Priority: Primary Status: Acute (2) Cardiac arrest Priority: Primary Status: Acute (3) Smoker Priority: Secondary Status: Acute (4) Hypertriglyceridemia Priority: Secondary Status: Chronic - Discharge Medications Prescriptions: Amiodarone [Cordarone] 400 mg PO DAILY #60 tablet Aspirin 81 mg PO DAILY #30 tab.chew Isosorbide MONOnitrate (24 HR) [Imdur] 120 mg PO DAILY #30 tab.er.24h Metoprolol [Lopressor] 25 mg PO BID #60 tablet Nicotine Patch [Nicoderm] 21 mg TD DAILY #44 patch.td24 Omeprazole [PriLOSEC] 20 mg PO BIDAC #30 capsule. Rosuvastatin [Crestor] 40 mg PO HS #30 tablet Ticagrelor [Brilinta] 90 mg PO BID #60 tablet Home Medications: Gabapentin [Neurontin] 800 mg PO TID 04/06/15 [History] Acetaminophen w/Cod 300-30 mg [Tylenol w/Codeine #3] 1 tab PO BID PRN 11/09/16 [ History] Amiodarone [Cordarone] 400 mg PO DAILY #60 tablet 11/12/16 [Rx] Aspirin 81 mg PO DAILY #30 tab.chew 11/12/16 [Rx] Isosorbide MONOnitrate (24 HR) [Imdur] 120 mg PO DAILY #30 tab.er.24h 11/12/16 [ Rx] Metoprolol [Lopressor] 25 mg PO BID #60 tablet 11/12/16 [Rx] Nicotine Patch [Nicoderm] 21 mg TD DAILY #44 patch.td24 11/12/16 [Rx] Omeprazole [PriLOSEC] 20 mg PO BIDAC #30 capsule. 11/12/16 [Rx] Rosuvastatin [Crestor] 40 mg PO HS #30 tablet 11/12/16 [Rx] Ticagrelor [Brilinta] 90 mg PO BID #60 tablet 11/12/16 [Rx] Allergies/Adverse Reactions: Allergies No Known Allergies Allergy (Verified 07/09/16 11:15) Procedures/tests Complete & Pending: Procedures Performed prior 72 hours Category Date Time Status CL Cardiac Catheterization [CL] Routine Housekeeping Lead 11/09/16 12:48 Completed ECG 12 lead ECG [ECG] Routine Y 11/10/16 07:00 Completed ECG 12 lead ECG [ECG] Stat Y 11/09/16 14:21 Completed EV echocardiogram Routine Y 11/10/16 14:21 Completed Date of admission: 11/09/16 12:07 Primary care physician: Melvin Gallardo MD Consults: 11/09/16 14:21 Consult to Cardiac Rehabilitation-Phase1 [CONS] Routine Comment: Reason for Consult: AMI Call Completed: Yes Consult to Nurse Navigator [CONS] Routine Comment: Discharging clinician: Laci Singh Anticipated date of discharge: 11/12/16 - Patient Status Disposition: Home, Self-Care Condition: Good Overall status at discharge: patient is progressing back to baseline - Discharge Instructions Follow Up With: JASON,PCP [Non-Partnered Physician] - Naresh Yeboah MD [Partnered Physician] - (1 week) Additional Instructions: RISK FACTORS: STOP SMOKING: If you smoke, STOP. Smoking or tobacco use significantly increases your risk of heart disease because nicotine causes the arteries to narrow or constrict. It also causes fats to stick to the artery. Your chances of having a heart attack are greatly increased if you continue to smoke. For more information, call the education line for smoking cessation 9-889-YHWLJBJ EAT A LOW FAT/CHOLESTEROL/SODIUM DIET: This diet may help reduce your chances of having a heart attack. LIFTING: With affected extremity: Avoid bending, pushing off and lifting more than 2 pounds for 24 hours The following 48 hours, avoid lifting anything more than 5 pounds Avoid strenuous activity or repetitive motions ACTIVITY: You may walk or climb stairs as tolerated You can resume sexual activity as tolerated In general, you are encouraged to engage in a minimum of 30 minutes or more of moderate intensity physical activity, such as brisk walking, daily or at least 3 -4 times weekly BATHING Do not submerge the site into water (bath tub, hot tub, swimming pool, dishes) for 1 week. This can be a source for infection into the blood stream. You may shower after 24 hours SITE CARE: After 24 hours, you may remove the dressing and leave the site open to air. Keep the site clean and dry. Clean gently and pat dry. You can expect bruising and tenderness that gradually resolve within a week or two. Return to work as instructed per your physician Resume driving as instructed per physician Keep all scheduled follow up appointments Resume medications as instructed IMPORTANT: If prescribed a Platelet Aggregation Inhibitor such as, Plavix, Brilinta or Effient: Duration of therapy is minimum one year These medications are often used in combination with Aspirin in prevention of future heart attacks Never discontinue unless consult with your Corporate Investigator STROKE (CVA) Risk factors for a stroke are: Age, cigarette smoking, diabetes, excessive alcohol consumption, family history, high blood pressure, overweight, physical inactivity, prior stroke, heart attack, diagnosis of carotid artery stenosis or other artery disease. Warning signs: Sudden numbness or weakness of the face, arm or leg; especially on one side of the body, sudden confusion, trouble speaking or understanding, sudden trouble seeing in one or both eyes, sudden trouble walking, dizziness, loss of balance or coordination, sudden severe headache with no cause. Call 911 or go to the Emergency Room. CONGESTIVE HEART FAILURE: If you have been diagnosed with Congestive Heart Failure (CHF) and your symptoms return, make an appointment with your physician Weigh yourself daily. Notify your physician if you have a weight gain of two or more pounds in one day or five or more pounds in one week. If you experience any difficulty breathing, please call 911 BLEEDING: Although the risk of bleeding is minimal, it can happen. If you have any bleeding from the site, apply firm pressure above the puncture site for 10-15 minutes. If the bleeding does not stop, continue manual pressure and call 911 Contact [facility] ( ) if: You develop a fever greater than 101 degrees Fahrenheit Your site becomes reddened or has any drainage You have an increase in pain or burning at the site or if a large knot forms at the site. If you experience chest pain, shortness of breath, dizziness, or extreme tiredness, stop the activity and rest. Please notify [facility] office if you experience any of these symptoms and they are not relieved by rest please call 911! - Diet and Activity Diet: low fat, low cholesterol - Hospital Course Hospital course: Mr. Laboy is a 61 year old male s/p acute inferior MN s/p PCI to his RCA ( culprit). LHC complicated by hypotension and slow flow spasms resulting in VT and vfib. He received defibrillation x 2 and was placed on amiodarone. He required short term dopamine and neosynephrine for hypotension. EF 55% on LHC. There is a 70% stenosis in his proximal LAD and 90% stenosis in his 1st OM remaining. TTE demonstrated EF 55%, no significant valvular disease. Planning for PCI to LAD and OM1 in the out-pt setting. He denies recurrent chest pain. He was started on imdur. He is tolerating all of his medications well. No recurrent VT or Vfib seen during his stay. Right radial access site without redness or edema. Left arm IV access site developed mild redness and swelling. Instructed to elevate and apply warm compress. Take Ibuprofen if needed for pain but not longer that 48 hours. He is on PPI. Instructed to notify office if symptoms worsen. Importance of DAPT with asa and brilinta uninterrupted for one year discussed and he voiced understanding. Time spent discussing smoking cessation with patient: more than 10 minutes ( Nicotine patch given. He is ready to quit.) - Time Spent with Patient Total time spent providing and/or coordinating discharge services:1hr Greater than 30 minutes Physical Examination Vital Signs, Last 4 Hours Temp Pulse Resp BP Pulse Ox 11/12/16 07:55 61 11/12/16 07:51 97.6 F 61 16 111/74 97 11/12/16 07:47 97.6 F General: Conversant, No Apparent Distress HEENT: Atraumatic, Normocephaly, Mucus Membranes Moist Neck: No JVD, Normal carotid pulses Cardiac: Reg Rate and Rhythm, Normal S1 and S2, No Murmur Lungs: Normal Breath Sounds, No Wheeze, Rales, Rhonchi Neuro: Alert and responsive, No focal deficits noted Abdomen: Soft, Non-Tender Skin: No rashes noted on visualized skin Musculoskeletal: No Chest Wall Tenderness Extremities: No Clubbing, No Cyanosis, No Edema, Normal Pulses, Other (right radial acess site without redness or edema. Left forearm IV access ite with mild redness. Less edema compared to yesterday. Arm elevated. )
== END 2016-11-12 11:45 | disposition home or self-care (01) | DRG 174 ==
LOC: ICNU 12:07
PROVIDERS: ADMIT Emergency Medicine; ATTEND Emergency Medicine

== ENCOUNTER 2017-09-25 13:23 | Inpatient (IN) ==
[~2017-09-25 13:23] MED LIST changes: -*HR* Amiodarone Premix 150 MG/100 ML BAG IVPB ONE; +*HR* Labetalol 20 MG/4 ML SYRINGE IVP PRN; +*HR* OxyCODONE Immed Rel 5 MG TABLET PO PRN; +*HR* Promethazine 25 MG/ML VIAL IVP PRN
[2017-09-25] MEDS ORDERED: Albuterol 2.5 MG/3 ML NEBULIZER IH ONE (14:00)
[2017-09-25] MEDS ORDERED: CeFAZolin Syr 2,000MG/20 ML 2,000 MG/20 ML SYRINGE IVPB ONE (14:00)
[2017-09-25] MEDS ORDERED: Plasma-Lyte A (PH 7.4) 1,000 ML IVC SCH (14:00)
--- NOTE | 2017-09-25 14:22 | History & Physical Report ---
Date of Encounter: 09/25/17 Time of Encounter: 14:22 24 Hour HP Update - Instructions Instructions: If the History and Physical is less than 30 days old and was completed prior to A.M. admission and or procedure and has NOT been updated on calendar day of procedure please complete this update prior to performing procedure. - Update Patient reports changes in Medical Condition: No Changes in examination, assessment, or condition: No Changes in Medication: No Preop tests/diagnostics Reviewed: Yes Surgery Remains Indicated: Yes Consent for Planned Operative Procedure(s) Verified: Yes - Pre-Operative Checklist Preoperative Checklist Indicated: No Prophylactic Antibiotic Ordered: Yes Is VTE Prophylaxis Indicated?: NO
--- NOTE | 2017-09-25 14:33 | Anesthesia Evaluation PreOp ---
Date of Encounter: 09/25/17 Time of Encounter: 14:30 - Past History Planned Operation: Right TSR reverse ball socket revision Cardiac History: [place] (NSTEMI 2017 s/p BENITO x 2 on plavix which he took last night) , Other (Impressions: There is severe two vessel coronary artery disease. The left ventricle is normal and has normal contractility EF 65% Patient had successful PTCA/Drug-Eluting Stent placement in the proximal LAD. Patient had successful PTCA/Drug-Eluting Stent placement in the mid Circ. Stents placed from a prior procedure in the Proximal-Mid RCA are patent. Recommendations: Optimal medical therapy of patient's disease. Aggressive risk factor modification. Stress 09/24/17 negative for ischemia EF 63%, evidence of fixed defect suggesting prior infarct) Pulmonary History: Smoker (did not smoke today), Pack/yr (45) GMAT INSTRUCTOR History: Denies Any Significant HX Other Medical History: Denies Any Significant HX Anesthesia History: No Prior Anesthetic Complications, Past Anesthesia (R TSR, L hand) Alcohol Use: none Drug use: none Medications and Allergies Albuterol Sulfate [Albuterol Inhaler] 2 puff IH Q4HR PRN 09/25/17 [History] Amiodarone [Cordarone] 200 mg PO DAILY 09/25/17 [History] Amitriptyline [Elavil] 25 mg PO HS 09/25/17 [History] Aspirin [Adult Aspirin Regimen] 81 mg PO DAILY 09/25/17 [History] Atorvastatin Calcium [Lipitor] 80 mg PO HS 09/25/17 [History] Clopidogrel [Plavix] 75 mg PO DAILY 09/25/17 [History] Gabapentin [Neurontin] 800 mg PO TID 09/25/17 [History] Isosorbide MONOnitrate [Isosorbide Mononitrate ER] 120 mg PO DAILY 09/25/17 [ History] Metoprolol [Lopressor] 25 mg PO BID 09/25/17 [History] Tramadol HCl [Ultram] 50 mg PO QID PRN 09/25/17 [History] Umeclidinium [place] [Incruse Ellipta] 1 puff IH DAILY 09/25/17 [History] 3 Allergy/AdvReac Type Severity Reaction Status Date / Time No Known Allergies Allergy Verified 09/25/17 13:54 - Meds/Allergy Pre-op Review Medications Reviewed: Yes Allergies Reviewed: Yes Beta Blockers on Current Med List: Yes If Beta Blockers taken, Date/Time (Last Dose taken): 219909/24/17 Anesthesia Results - Labs Laboratory Tests 09/22/17 09/22/17 09/22/17 11:19 11:19 11:19 WBC 7.7 Hgb 14.5 Hct 45.4 Plt Count 267 PT 10.2 INR 1.0 APTT 29.4 Sodium 139 Potassium 4.5 Chloride 108 H Carbon Dioxide 26 BUN 13 Creatinine 0.89 Glucose 77 - Imaging EKG: report reviewed (SR, inf [place]) Anesthesia Exam O2 Sat Height 1.68 m Height 1.68 m Height 1.68 m Weight 78.471 kg Weight 78.471 kg Weight 78.471 kg O2 Sat by Pulse Oximetry 98 O2 Sat by Pulse Oximetry 97 Vital Signs Temp Pulse Resp BP Pulse Ox 97.8 F 67 18 138/95 97 09/25/17 13:49 09/25/17 13:49 09/25/17 13:49 09/25/17 13:49 09/25/17 13:49 - HEENT Pupil (Motor): Pupils equal, EOMI Mallampati: II Teeth: Edentulous Oral Opening: Greater than 3 - GMAT INSTRUCTOR LOC: Oriented GMAT INSTRUCTOR Motor: Normal RUE, Normal LUE, Normal RLE, Normal LLE, Normal Face GMAT INSTRUCTOR Sensory: Normal: RUE, LUE, RLE, LLE, Face - Cardiac Rhythm: Regular - Pulmonary Breath Sounds: bilateral Clear Respiratory Effort: Symmetrical Anesthesia Assess/Plan ASA Score: 3 Modified Ben Scale for Level of Consciousness: Cooperative, oriented, and tranquil Anesthetic Plan: General Monitoring Plan: Standard Monitors Recovery Plan: PACU
[2017-09-25] MEDS ORDERED: Acetaminophen IV 1,000 MG/100 ML INFUS..BTL IVPB ONE (14:42)
--- NOTE | 2017-09-25 15:54 | Discharge Summary ---
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 Laboy is a 62 year old male s/p total shoulder replacement The patient had an uneventful postoperative course. They received antibiotics and physical therapy and were discharged in stable condition. There will follow -up in the office in 2 weeks. - Time Spent with Patient Total time spent providing and/or coordinating discharge services: - Discharge Medications Home Medications: Albuterol Sulfate [Albuterol Inhaler] 2 puff IH Q4HR PRN 09/25/17 [History] Amiodarone [Cordarone] 200 mg PO DAILY 09/25/17 [History] Amitriptyline [Elavil] 25 mg PO HS 09/25/17 [History] Aspirin [Adult Aspirin Regimen] 81 mg PO DAILY 09/25/17 [History] Atorvastatin Calcium [Lipitor] 80 mg PO HS 09/25/17 [History] Clopidogrel [Plavix] 75 mg PO DAILY 09/25/17 [History] Gabapentin [Neurontin] 800 mg PO TID 09/25/17 [History] Isosorbide MONOnitrate [Isosorbide Mononitrate ER] 120 mg PO DAILY 09/25/17 [ History] Metoprolol [Lopressor] 25 mg PO BID 09/25/17 [History] Tramadol HCl [Ultram] 50 mg PO QID PRN 09/25/17 [History] Umeclidinium [place] [Incruse Ellipta] 1 puff IH DAILY 09/25/17 [History] Allergies/Adverse Reactions: 3 Allergy/AdvReac Type Severity Reaction Status Date / Time No Known Allergies Allergy Verified 09/25/17 13:54 Primary care physician: Melvin Gallardo MD - Patient Status Disposition: Home, Self-Care Condition: Good Functional capacity at discharge: independent ambulation Overall status at discharge: patient is progressing back to baseline - Discharge Instructions Follow Up With: Betzy Hughes PAC [Physician Skidder Operator] - 10/06/17 9:15 am Melvin Gallardo MD [Primary Care Provider] - Additional Instructions: Discharge Instructions: Total Shoulder Please call [facility] ([phone]), your Primary Care Physician, or report to the Emergency Room if you have any of the following symptoms: Nausea, vomiting, fever greater that 101.5, swelling, chest pain, shortness of breath, increased pain/redness/drainage/odor for your incision site, numbness/ tingling, or any other concerning symptoms. ACTIVITY: Always keep your arm in the sling. Do not raise your arm away from your body. Do not use your arm to help with getting in or out of bed. No weight bearing permitted. Only perform those exercises given to you by your therapist. MEDICATIONS: Upon discharge resume your home medications. Take all the medications as prescribed. Take a stool softener if taking narcotic pain medications. Stool softeners are only effective if you drink enough fluids. Drink 6-8 glass of water or fluids a day, unless this is not allowed for another health problem. Despite using stool softeners, if you haven't had a bowel movement in 3 days, please switch to a gentle laxative. Gentle laxatives are sold over the counter. You should have a bowel movement within 24 hours, if not call the office. You will be discharged from the hospital with a prescription for pain medication. You are encouraged to decrease the use of narcotic pain medication as tolerated. Should you require a refill, please call the office. [facility] prescribes narcotic pain medication for only 4-6 weeks after surgery. If you require pain medication beyond this time period, you may be referred to your Primary Care Physician or to the Pain Clinic for further evaluation. Plan ahead for refills on pain medication as many narcotics either need to be picked up at the office or mailed. It is best to call 48-72 hours in advance of needing a prescription refill so you don't run out of medication. To help control the post-operative pain, you may take NSAIDs (Aleve,Advil, Motrin, Ibuprofen, Naprosyn) or Tylenol as prescribed on the bottle in addition to the pain medication. WOUND CARE: Leave the dressing on for 7-10 days. You may change the dressing if it becomes saturated greater than 50%. Do not get the dressing wet at anytime. Wash your hands with antibacterial soap, rinse and dry prior to any wound care. If you have hortencia the visiting nurse or rehab facility can remove the stapes 10-14 days after surgery and place steri-strips across the wound. Leave the steri-strips in place until they fall off on their own. You may let water from the shower run on top of the steri-strips. If you do not have a visiting nurse or rehab facility, you will need to return to the office at 10-14 days for the hortencia to be removed. If you have itching or redness around the dressing call the office. FOLLOW-UP: Please follow up with your surgeon in the orthopedic clinic, as scheduled
--- NOTE | 2017-09-25 16:09 | Physician Discharge Referral ---
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 For more information, call the [place] Tobacco Quit Line at 1-989-KUPY-NOW. - Dressing/Wound Care Site: right shoulder Type of Dressing/Treatments w/Frequency: Opsite placed. Keep dressing intact until first follow up appointment. If > 50% saturated, notify office, remove dressing and place appropriate dressing back in place. Leave Epworth/Zipline intact. Opsite dressing is water resistant, not water-proof. OK to shower, but do not get dressing wet. - Diet/Nutrition Diet/Nutrition Orders: Regular - Activity Activity Orders: Up ad barrera, Ambulate, Chair - Services Needed Following services are medically necessary services: Nursing, Home Health Aide, Physical Therapy, Occupational Therapy Home Care Orders: NO SHOULDER MOTION ---- PT/OT elbow,wrist, hand and ADL retraining ONLY NWB to affected upper extremity. Follow Shoulder Precautions x 6 weeks. Stay in brace at all times. Remove brace to shower, keep shoulder immobilized. ICE extremity frequently throughout the day. - Transfer Medications Home Medications: Albuterol Sulfate [Albuterol Inhaler] 2 puff IH Q4HR PRN 09/25/17 [History] Amiodarone [Cordarone] 200 mg PO DAILY 09/25/17 [History] Amitriptyline [Elavil] 25 mg PO HS 09/25/17 [History] Aspirin [Adult Aspirin Regimen] 81 mg PO DAILY 09/25/17 [History] Atorvastatin Calcium [Lipitor] 80 mg PO HS 09/25/17 [History] Clopidogrel [Plavix] 75 mg PO DAILY 09/25/17 [History] Gabapentin [Neurontin] 800 mg PO TID 09/25/17 [History] Isosorbide MONOnitrate [Isosorbide Mononitrate ER] 120 mg PO DAILY 09/25/17 [ History] Metoprolol [Lopressor] 25 mg PO BID 09/25/17 [History] Tramadol HCl [Ultram] 50 mg PO QID PRN 09/25/17 [History] Umeclidinium [place] [Incruse Ellipta] 1 puff IH DAILY 09/25/17 [History] Allergies/Adverse Reactions: 3 Allergy/AdvReac Type Severity Reaction Status Date / Time No Known Allergies Allergy Verified 09/25/17 13:54 Certification: Further, I certify that my clinical findings support that this patient is homebound (i.e. absences from home require considerable and taxing effort and are for medical reasons or judaism services or infrequently or short duration when for other reasons) because: Homebound Reason: Post-surgery restriction and or conditions limit ability to leave home Attestation: My signature below is to certify that this patient is under my care and that I, or nurse practitioner, or a physician assistant county attorney working with me, has a face-to- face encounter with this patient.
[2017-09-25] MEDS ORDERED: Ethanol\\Acetic Acid\\Na Ace\\Ben 1,000 ML IRRIG.SOLN IR ONE (16:12)
[2017-09-25] MEDS ORDERED: Lidocaine -MPF 2% 2 ML VIAL ONE ×2 (16:13→17:20)
[2017-09-25] MEDS ORDERED: *HR* Propofol 200 MG/20 ML VIAL IVP ONE (16:13)
[2017-09-25] MEDS ORDERED: Dexamethasone 4 MG/ML VIAL ONE (16:13)
[2017-09-25] MEDS ORDERED: *HR* FentaNYL (PF) 100 MCG/2 ML VIAL ONE ×2 (16:13→16:14)
[2017-09-25] MEDS ORDERED: *HR* Succinylcholine 200 MG/10 ML VIAL IVP ONE (16:16)
[2017-09-25] MEDS ORDERED: Ondansetron 4 MG/2 ML VIAL ONE (16:16)
[2017-09-25] MEDS ORDERED: *HR* Rocuronium Bromide 50 MG/5 ML VIAL ONE (16:16)
[2017-09-25] MEDS ORDERED: *HR* PHENYLEPHRINE 1,000 MCG/10 ML SYRINGE IVP ONE (16:18)
[2017-09-25] MEDS ORDERED: Ketorolac 30 MG/ML VIAL ONE (17:13)
[2017-09-25] MEDS ORDERED: *HR* Magnesium Sulfate 1 GM/2 ML VIAL ONE (17:15)
[2017-09-25] MEDS ORDERED: Neostigmine Methylsulfate 3 MG/3 ML SYRINGE ONE (17:19)
[2017-09-25] MEDS ORDERED: *HR* Enoxaparin 30 MG/0.3 ML SYRINGE SQ SCH (18:00)
--- NOTE | 2017-09-25 18:01 | Orthopedic Operative Note ---
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 1 6.5 screw, 42+4 glenosphere, 10 humeral stem, poly insert 3 constrained 12 metal Exam Under anesthesia: Well-healed incision restricted motion Procedural Notes: Complete separation of the glenoid baseplate from the glenoid. The patient was known to have a loose component was unable to have this addressed early on due to recent cardiac stenting. Operative procedure: The patient was brought to the operating room and placed on the operating room table. After general anesthesia was administered the operative shoulder was examined. Findings were noted. The patient was placed in the modified beachchair position. All pressure points were padded appropriately. And the head was stabilized in the neutral position. The operative extremity was prepped and draped in the sterile surgical fashion. The patient received IV antibiotics prior to skin incision. A standard deltopectoral approach was made to the operative shoulder. Incision was made through the old incision, through the skin and subcutaneous tissue, hemo stasis was obtained with Bovie cautery. Using careful blunt dissection the cephalic vein was identified and mobilized medially. The deltopectoral interval was developed and the clavipectoral fascia was incised. The humeral component was sitting just below clavipectoral fascia. This was retracted laterally and the glenoid component was removed this included the baseplate at the glenohumeral attack and the 3 broken screws with in the baseplate. Attention was then turned to the humeral stem the poly-was removed followed by the metal spacer followed by the stem without bone loss. Attention was then turned back to the glenoid. Extensive scar tissue was removed. Anterior and posterior Bankart retractors were placed to expose the glenoid. The glenoid guide was seated and the centering hole was made. It was reamed with the appropriate reamer. The large baseplate was seated and secured with ( 2) 4.5 screws and one 6.5 screw. The baseplate was irrigated and dried and the 42+4 Glenosphere was seated and secured with the Ashley taper. The Ashley taper was tested and found to be secure the humerus was redislocated and prepared with the diaphyseal reamers, followed by a broaching process up to the appropriate size 10 in the patient's anatomic version. T Trial reduction found the shoulder to be relocatable. Trial components were removed and the appropriate 10 stem was impacted in place in the patient's anatomic version. Trial reduction found the shoulder to be relocatable and stable with the appropriate 3 constrained and 12 spacer. Trial component was removed and the real implants was seated and secured the shoulder was reduced. The shoulder had excellent motion and excellent stability and no evidence of dislocation. The deep tissue was irrigated with pulse irrigation. T The deltopectoral interval was closed with a running #1 PDS suture, subcutaneous tissue was irrigated and closed with 0 PDS suture, the skin was closed with skin hortencia. The patient was placed in a sterile dressing, abduction brace and extubated. The patient was then transferred to the recovery room in stable condition. Anesthesia: LANNY Surgeon: Clemente Madrigal Was there an insurance claims assistant present: No Estimated blood loss (cc): 200 Condition: stable Disposition: PACU
[2017-09-25] MEDS ORDERED: Albuterol 2.5 MG/3 ML NEBULIZER ONE (18:14)
[2017-09-25] MEDS: MORPHINE SUL Oral CONC 10 MG/0.5 ML ORAL.SYG SL PRN ×2 (18:15→18:25)
[2017-09-25 19:04] LABS: Hematocrit 47.7 % (37.5-50.1); Hemoglobin 15.3 g/dL (12.9-16.9)
[2017-09-25] MEDS ORDERED: *HR* HYDROmorphone 2 MG TABLET PO ONE (19:30)
[2017-09-25] MEDS ORDERED: *HR* OxyCODONE Immed Rel 5 MG TABLET PO ONE (19:30)
[2017-09-25] MEDS ORDERED: cloNIDine HCl 0.1 MG TABLET ONE (20:24)
[2017-09-25] MEDS ORDERED: Pregabalin 75 MG CAPSULE ONE (20:26)
[2017-09-25] MEDS ORDERED: Temazepam 15 MG CAPSULE PO PRN (20:28)
[2017-09-25] MEDS ORDERED: MOM Conc 10 ML UD.LIQ PO PRN (20:28)
[2017-09-25] MEDS ORDERED: Ondansetron 4 MG/2 ML VIAL IVP PRN (20:28)
[2017-09-25] MEDS ORDERED: Sennosides 8.6 MG TABLET PO PRN (20:28)
[2017-09-25] MEDS ORDERED: Naloxone 0.4 MG/ML INJ IVP PRN (20:28)
[2017-09-25] MEDS ORDERED: Ringers Solution, Lactated 1,000 ML IVC SCH (20:28)
[2017-09-25] MEDS ORDERED: *HR* OxyCODONE Immed Rel 5 MG TABLET PO PRN (20:28)
--- NOTE | 2017-09-25 20:49 | Anesthesia Evaluation Post Op ---
Date of Encounter: 09/25/17 Time of Encounter: 20:45 - Vital Signs Vital Signs: Vital Signs/O2 Sat/Glucose, Most Current Vital Signs/O2 Sat/Glucose, Most Current Temp Pulse Resp BP Pulse Ox 09/25/17 20:53 74 17 124/99 99 09/25/17 20:43 78 15 138/105 99 09/25/17 20:33 97.4 F L 71 16 121/97 100 09/25/17 20:23 73 16 157/101 97 09/25/17 20:13 82 16 134/99 98 09/25/17 20:03 97.3 F L 76 16 147/87 92 09/25/17 19:53 77 16 136/92 92 09/25/17 19:43 76 20 136/88 92 09/25/17 19:33 97.3 F L 73 20 148/100 95 09/25/17 19:23 76 20 133/99 96 09/25/17 19:13 75 20 138/99 97 09/25/17 19:03 97.0 F L 74 20 140/100 96 09/25/17 18:53 73 20 154/100 95 09/25/17 18:43 72 20 139/94 100 09/25/17 18:33 97.4 F L 76 20 162/96 100 09/25/17 18:23 85 20 163/107 100 09/25/17 18:13 86 16 152/121 100 09/25/17 18:03 97.3 F L 91 16 168/104 100 - Lungs Lungs: Clear Ascult./Percussion - Airway Airway: Non-obstructed - Cardiovascular Regular Rate - Mental Status Mental Status: Alert & Oriented, Answers Appropriately - Pain Pain Scale: 6 - Nausea Vomiting Nausea Vomiting: Not Present - Hydration Hydration: Ice chips, Has not voided - Discharge PostOp Status: Transfer Patient to floor Anes Supervising Prov Stmt: Pt seen/evaluated, R&B discussed, questions answered and consent obtained. Mona Mckeon MD
[2017-09-25] MEDS: Gabapentin 400 MG CAPSULE PO SCH (21:29)
[2017-09-25] MEDS: CeFAZolin Premix DUPLEX 2,000 MG/50 ML BAG IVPB SCH (21:29)
[2017-09-26] MEDS: *HR* OxyCODONE Immed Rel 5 MG TABLET PO PRN ×3 (01:28→12:24)
[2017-09-26 01:58] LABS: Hematocrit 43.1 % (37.5-50.1); Hemoglobin 13.9 g/dL (12.9-16.9)
[2017-09-26] MEDS: CeFAZolin Premix DUPLEX 2,000 MG/50 ML BAG IVPB SCH (05:14)
[2017-09-26] MEDS ORDERED: *HR* Enoxaparin 30 MG/0.3 ML SYRINGE SQ SCH (06:00)
[2017-09-26] MEDS: Gabapentin 400 MG CAPSULE PO SCH (08:06)
[2017-09-26] MEDS ORDERED: Isosorbide MONOnitrate (24 HR) 60 MG TAB.ER.24H PO SCH (09:00)
[2017-09-26] MEDS ORDERED: Aspirin Enteric Coated 81 MG Tablet PO SCH (09:00)
[2017-09-26] MEDS ORDERED: *HR* Amiodarone 200 MG TABLET PO SCH (09:00)
[2017-09-26] MEDS ORDERED: traMADol 50 MG TABLET PO ONE (10:29)
--- NOTE | 2017-09-26 11:04 | Orthopedics Progress Note ---
Date of Encounter: 09/26/17 Time of Encounter: 11:03 Subjective Interval history: S: Doing fine first day s/p R Reverse TSA. Pain appears well controlled. In sling. No n/v O: AFVSS GEN: NAD RUE: Dress c/d/i Wiggles fingers 2+ RP +ax/m/r/u A/P: POD#1 s/p R reverse TSA -Continue sling, no ROM of shoulder -Ok to d/c today -F/u as scheduled Objective Vital signs: Vital Signs Temp Pulse Resp BP Pulse Ox 09/26/17 08:10 100 09/26/17 06:48 98.5 F 67 16 130/87 92 09/26/17 04:57 98.5 F 66 16 125/85 100 09/25/17 23:15 97.9 F 75 16 138/87 100 09/25/17 22:15 98.0 F 77 16 156/90 100 09/25/17 21:45 97.8 F 82 16 149/93 100 09/25/17 21:15 97.8 F 79 16 160/98 100 09/25/17 20:53 97.4 F L 74 17 124/99 99 09/25/17 20:43 78 15 138/105 99 09/25/17 20:33 97.4 F L 71 16 121/97 100 09/25/17 20:23 73 16 157/101 97 09/25/17 20:13 82 16 134/99 98 09/25/17 20:03 97.3 F L 76 16 147/87 92 09/25/17 19:53 77 16 136/92 92 09/25/17 19:43 76 20 136/88 92 09/25/17 19:33 97.3 F L 73 20 148/100 95 09/25/17 19:23 76 20 133/99 96 09/25/17 19:13 75 20 138/99 97 09/25/17 19:03 97.0 F L 74 20 140/100 96 09/25/17 18:53 73 20 154/100 95 09/25/17 18:43 72 20 139/94 100 09/25/17 18:33 97.4 F L 76 20 162/96 100 09/25/17 18:23 85 20 163/107 100 09/25/17 18:13 86 16 152/121 100 09/25/17 18:03 97.3 F L 91 16 168/104 100 09/25/17 14:29 18 98 09/25/17 13:49 97.8 F 67 18 138/95 97 Intake and Output 09/25/17 09/26/17 09/26/17 23:59 07:59 15:59 Intake Total 200 / 200 240 / 240 Output Total 200 / 200 375 / 375 Balance 0 / 0 -375 / -375 240 / 240 Intake: IV Fluids 50 / 50 Ancef Premix DUPLEX 2,000 mg In 50 / 50 50 ml @ 100 mls/hr IVPB Q8H NEERAJ Rx#:[id number] Oral 150 / 150 240 / 240 Output: Urine 375 / 375 Estimated Blood Loss 200 / 200 Other: Meal Breakfast Percent of Meal Consumed 100% - Labs CBC & BMP: 09/26/17 01:25 - VTE Documentation of Mechanical Device: Venous foot pump, device Consult Discharge Plan - Plan Additional Instructions: Discharge Instructions: Total Shoulder Please call [facility] ([phone]), your Primary Care Physician, or report to the Emergency Room if you have any of the following symptoms: Nausea, vomiting, fever greater that 101.5, swelling, chest pain, shortness of breath, increased pain/redness/drainage/odor for your incision site, numbness/ tingling, or any other concerning symptoms. ACTIVITY: Always keep your arm in the sling. Do not raise your arm away from your body. Do not use your arm to help with getting in or out of bed. No weight bearing permitted. Only perform those exercises given to you by your therapist. MEDICATIONS: Upon discharge resume your home medications. Take all the medications as prescribed. Take a stool softener if taking narcotic pain medications. Stool softeners are only effective if you drink enough fluids. Drink 6-8 glass of water or fluids a day, unless this is not allowed for another health problem. Despite using stool softeners, if you haven't had a bowel movement in 3 days, please switch to a gentle laxative. Gentle laxatives are sold over the counter. You should have a bowel movement within 24 hours, if not call the office. You will be discharged from the hospital with a prescription for pain medication. You are encouraged to decrease the use of narcotic pain medication as tolerated. Should you require a refill, please call the office. [facility] prescribes narcotic pain medication for only 4-6 weeks after surgery. If you require pain medication beyond this time period, you may be referred to your Primary Care Physician or to the Pain Clinic for further evaluation. Plan ahead for refills on pain medication as many narcotics either need to be picked up at the office or mailed. It is best to call 48-72 hours in advance of needing a prescription refill so you don't run out of medication. To help control the post-operative pain, you may take NSAIDs (Aleve,Advil, Motrin, Ibuprofen, Naprosyn) or Tylenol as prescribed on the bottle in addition to the pain medication. WOUND CARE: Leave the dressing on for 7-10 days. You may change the dressing if it becomes saturated greater than 50%. Do not get the dressing wet at anytime. Wash your hands with antibacterial soap, rinse and dry prior to any wound care. If you have hortencia the visiting nurse or rehab facility can remove the stapes 10-14 days after surgery and place steri-strips across the wound. Leave the steri-strips in place until they fall off on their own. You may let water from the shower run on top of the steri-strips. If you do not have a visiting nurse or rehab facility, you will need to return to the office at 10-14 days for the hortencia to be removed. If you have itching or redness around the dressing call the office. FOLLOW-UP: Please follow up with your surgeon in the orthopedic clinic, as scheduled Referrals: Betzy Hughes PAC [Physician Member Of Parliament] - 10/06/17 9:15 am Melvin Gallardo MD [Primary Care Provider] -
[2017-09-26 11:25] VITALS: BP 124/85
== END 2017-09-26 15:00 | disposition home or self-care (01) | DRG 315 ==
LOC: SAMDAY 13:23 → 3NENU 20:03
PROVIDERS: ADMIT Orthopaedic Surgery; ATTEND Orthopaedic Surgery